=== PATIENT | male | born 1995 | race Caucasian/White ===

== ENCOUNTER 2024-11-22 18:11 | Outpatient (RCR) | payer SELFPAY | END 2024-11-22 23:59 | disposition home or self-care (01) | LOC: RPT 18:11 | PROVIDERS: ATTENDING PHYSICIAN Internal Medicine Gastroenterology; FAMILY PHYSICIAN Internal Medicine | DX: R10.2 Pelvic and perineal pain (principal); K60.1 Chronic anal fissure; Z73.6 Limitation of activities due to disability; K58.0 Irritable bowel syndrome with diarrhea | CPT/HCPCS: 97110; 97112; 97140; 97162; 97530 ==